=== PATIENT | female | born 2000 | race Caucasian/White ===

== ENCOUNTER → 2020-07-30 15:30 | Observation (INO) ==
[2020-07-30 14:03] LABS: Bilirubin,Urine Negative (Negative); Blood,Urine Negative (Negative); Clarity,Urine Clear (Clear); Color,Urine Light-Yellow (Yellow); Glucose,Urine (UA) Normal (Normal); Ketones,Urine Negative (Negative); Leukocyte Esterase,Urine Negative (Negative); Nitrite,Urine Negative (Negative); PH,Urine 7.5 pH Units (5.0-8.0); Protein,Urine Negative (Neg-Trace); Specific Gravity,Urine 1.016 (1.010-1.025); Urobilinogen,Urine Normal (Normal)
[~2020-07-30 15:30] MED LIST: Acetaminophen/Butalbital/CaffeineTABLET PO PRN; Ondansetron ODT 4 MG TAB.RAPDIS SL ONE
== END | disposition home or self-care (01) ==
LOC: 1NENULAB
PROVIDERS: ADMIT Student in an Organized Health Care Education/Training Program; ATTEND Student in an Organized Health Care Education/Training Program

== ENCOUNTER 2020-11-22 13:10 | Inpatient (IN) ==
[2020-11-22] MEDS ORDERED: Naloxone 0.4 MG/ML INJ IVP PRN ×2 (14:06→15:07)
[2020-11-22] MEDS ORDERED: Famotidine 20 MG/2 ML VIAL IVP PRN (14:06)
[2020-11-22] MEDS ORDERED: Ondansetron 4 MG/2 ML VIAL IVP PRN ×2 (14:06→15:07)
[2020-11-22] MEDS ORDERED: *HR* Nalbuphine 10 MG/ML AMPUL IV PRN (14:06)
[2020-11-22] MEDS ORDERED: Azithromycin 500 MG in 0.9 % Sodium Chloride 250 ML IVPB ONE (14:06)
[2020-11-22 15:01] LABS: Basophils % 0.2 %; Eosinophils # 0.1 K/mcL (0.0-0.6); Eosinophils % 0.5 %; Hematocrit 38.1 % (35.3-44.9); Hemoglobin 12.3 g/dL (11.5-15.4); Immature Granulocytes % 0.5 % (0-4); Lymphocytes # 1.4 K/mcL (0.6-4.6); Lymphocytes % 10.6 %; Mean Corpuscular HGB Conc 32.3 g/dL (31.6-35.5); Mean Corpuscular Hemoglobin 29.1 pg (28.0-33.3); Mean Corpuscular Volume 90.1 fL (83.0-100.0); Mean Platelet Volume 11.7 fL (9.4-12.4); Monocytes # 0.6 K/mcL (0.0-1.3); Monocytes % 4.7 %; Platelet Count 197 K/mcL (140-400); Red Blood Count 4.23 M/mcL (3.82-4.97); Red Cell Distribution Width 13.4 % (11.5-14.5); Segmented Neutrophils % 83.5 %; White Blood Count 13.2 K/mcL (4.3-11.1)
[2020-11-22] MEDS ORDERED: EPHEDrine 50 MG/ML VIAL IVP PRN (15:07)
[2020-11-22] MEDS ORDERED: Ropivacaine/PF 0.2% 20 ML VIAL EP ONE (15:07)
[2020-11-22] MEDS ORDERED: Epidural Premix (fent/bupiv) 110 ML EP SCH (15:15)
[2020-11-22] MEDS: Ringers Solution, Lactated 1,000 ML IVC SCH ×2 (15:27→23:56)
[2020-11-22 15:49] LABS: Amphetamine Screen,Urine Negative ng/mL (Cutoff=1000); Barbiturate Screen,Urine Negative ng/mL (Cutoff=200); Benzodiazepines Screen,Urine Negative ng/mL (Cutoff=200); Cannabinoid Screen,Urine Positive ng/mL (Cutoff = 50); Cocaine Screen,Urine Negative ng/mL (Cutoff= 300); Opiate Screen,Urine Negative ng/mL (Cutoff=300); Phencyclidine Screen,Urine Negative ng/mL (Cutoff=25)
[2020-11-22] MEDS ORDERED: Ropivacaine/PF 0.2% 20 ML VIAL ONE (16:39)
[2020-11-22] MEDS ORDERED: Oxytocin 20 units/ LR 1000 mL 20 UNIT/1,000 ML BAG IVC SCH (18:00)
[2020-11-23] MEDS ORDERED: Oxytocin 20 units/ LR 1000 mL 20 UNIT/1,000 ML BAG IVC SCH (04:49)
[2020-11-23] MEDS ORDERED: Benzocaine/Menthol 56 GM AEROSOL SPRAY TP PRN (04:49)
[2020-11-23] MEDS ORDERED: Lanolin 7 G OINT...G. TP PRN (04:49)
[2020-11-23] MEDS: Ibuprofen 600 MG TABLET PO PRN ×3 (05:07→20:26)
[2020-11-23] MEDS: Acetaminophen 325 MG TABLET PO PRN (06:56)
[2020-11-23] MEDS ORDERED: Prenatal Vit/FA 1 EACH TABLET PO SCH (09:00)
[2020-11-24] MEDS: Acetaminophen 325 MG TABLET PO PRN (03:08)
[2020-11-24 05:31] LABS: Basophils # 0.1 K/mcL (0.0-0.2); Basophils % 0.4 %; Eosinophils # 0.2 K/mcL (0.0-0.6); Eosinophils % 1.2 %; Hematocrit 32.2 % (35.3-44.9); Immature Granulocytes % 0.5 % (0-4); Lymphocytes # 1.7 K/mcL (0.6-4.6); Lymphocytes % 13.4 %; Mean Corpuscular Hemoglobin 29.1 pg (28.0-33.3); Mean Platelet Volume 11.8 fL (9.4-12.4); Monocytes # 0.7 K/mcL (0.0-1.3); Monocytes % 5.2 %; Neutrophils # 10.2 K/mcL (1.6-8.9); Platelet Count 177 K/mcL (140-400); Red Blood Count 3.54 M/mcL (3.82-4.97); Red Cell Distribution Width 13.7 % (11.5-14.5); Segmented Neutrophils % 79.3 %; White Blood Count 12.9 K/mcL (4.3-11.1)
[2020-11-24 05:32] LABS: Hemoglobin 10.3 g/dL (11.5-15.4)
[2020-11-24] MEDS: Ibuprofen 600 MG TABLET PO PRN (08:01)
[2020-11-24 08:14] VITALS: BP 119/70
[2020-11-24] MEDS ORDERED: Lidocaine -MPF 1% 5 ML AMPUL ID ONE (10:08)
[2020-11-24] MEDS ORDERED: Etonogestrel 68 MG IMPLANT IL ONE (10:08)
== END 2020-11-24 11:23 | disposition home or self-care (01) | DRG 560 ==
LOC: 1NENULAB 13:10 → 1NENUOBS 11-23 06:45
PROVIDERS: ADMIT Obstetrics & Gynecology; ATTEND Obstetrics & Gynecology